=== PATIENT | male | born 1970 | race Caucasian/White ===

== ENCOUNTER 2023-09-22 18:24 | Observation (INO) ==
[2023-09-22 19:08] LABS: INR 1.08 (0.83-1.13)
[2023-09-22 19:31] LABS: Albumin 4.6 g/dL (3.2-5.2); Albumin/Globulin Ratio 1.8 (1-3); Calcium 8.6 mg/dL (8.6-10.3); Creatinine, Serum 0.78 mg/dL (0.67-1.17); Globulin 2.5 g/dL (2-4); Total Bilirubin 0.5 mg/dL (0.2-1.0); Total Protein 7.1 g/dL (6.4-8.9); eGFR CKD-EPI 107.3 (>60)
[2023-09-22 20:35] LABS: ABS Basophils 0.1 10^3/uL (0.0-0.1); ABS Eosinophils 0.2 10^3/uL (0.0-0.5); ABS Lymphocytes 1.2 10^3/uL (1.0-4.8); ABS Monocytes 0.4 10^3/uL (0.0-1.1); ABS Neutrophils 2.8 10^3/uL (1.5-7.6); Eosinophil % 3.3 %; Hematocrit 40.8 % (38-53); Hemoglobin 13.7 g/dL (13.2-16.3); Lymphocyte % 25.3 %; Mean Corpuscular Hemoglobin 31.7 pg (27-33); Mean Corpuscular Hgb Conc 33.7 g/dL (31-36); Mean Corpuscular Volume 94.1 fL (80-97); Nucleated Red Blood Cells % 0.1 %/100WBC (0.0-0.8); Platelet Count 127 10^3/uL (150-450); Red Blood Count 4.34 10^6/uL (4.06-5.63); Red Cell Distribution Width 15.4 % (12-17); White Blood Count 4.6 10^3/uL (3.6-10.2)
[2023-09-22] MEDS: Tetan/Diph/Pertus SYR(Tdap) 0.5 ML SYR(BOOSTRIX) use SYR contains LATEX IM ONE (21:31)
[2023-09-23] MEDS: Thiamine 100 MG/ML 2 ml VIAL (200 mg) IM ONE (02:27)
[2023-09-23] MEDS: Multivitamins/Minerals TAB PO SCH (02:28)
[2023-09-23 10:33] VITALS: BP 122/72
== END 2023-09-23 10:34 | disposition home or self-care (01) ==
LOC: ED 18:24 → EDHOLD 18:24 → SUATTDRO 22:58 → EDHOLD 09-23 10:32 → ED 09-23 10:32 → EDHOLD 09-23 10:33
PROVIDERS: ADMIT Internal Medicine; ATTEND Internal Medicine